=== PATIENT | female | born 1955 | race Caucasian/White ===

== ENCOUNTER 2018-07-19 08:38 | Day surgery (SDC) | payer MEDICAID ==
[2018-07-19] MEDS ORDERED: Lactated Ringers 1,000 ML IV SCH (09:15)
[2018-07-19] MEDS ORDERED: Scopolamine 1.5 MG Transdermal Patch TOP ONE (09:20)
[2018-07-19] MEDS ORDERED: fentaNYL 100 MCG/2 ML SDV ONE (09:26)
[2018-07-19] MEDS ORDERED: Midazolam 1 MG/ML 2 ML SDV ONE (09:26)
[2018-07-19] MEDS ORDERED: Propofol 200 MG/20 ML SDV ONE (09:26)
--- NOTE | 2018-07-20 11:27 | OR ---
DATE OF PROCEDURE: 07/19/2018 PREOPERATIVE DIAGNOSIS: Colon cancer screening. POSTOPERATIVE DIAGNOSIS: Diverticulosis. PROCEDURE: Colonoscopy to the cecum. SURGEON: Tanmay Trinidad MD ANESTHESIA: IV anesthesia with monitored anesthesia care. INDICATION: This 63-year-old white female is referred for a colonoscopy for colon cancer screening. She says her last colonoscopic exam was done 11 years ago. I counseled her for the procedure, including risks and alternatives, and she gave her informed consent to proceed. DESCRIPTION OF PROCEDURE: The patient was placed in the left lateral decubitus position. IV anesthesia was administered by the Anesthesia Service. Time-out was held. A rectal exam was performed, which was unremarkable. The flexible video Olympus colonoscope was introduced through her anus, up her rectum and out her colon all the way to the cecum. To reach the cecum, we did have to apply some abdominal compression. Once the cecum was reached, the scope was slowly withdrawn, examining the mucosa throughout. We did encounter a few scattered left-sided diverticula. There was no bleeding or inflammation associated with them. There were no neoplastic lesions seen. The scope was retroflexed in the rectum with the distal rectum appearing unremarkable. The scope was straightened and removed. She tolerated the procedure well. Tanmay Trinidad MD /[id number] MTDD
== END 2018-07-19 12:22 | disposition home or self-care (01) ==
LOC: JP.SDS 08:38
PROVIDERS: ATTEND Surgery
DX: Z12.11 Encounter for screening for malignant neoplasm of colon (principal); K57.30 Diverticulosis of large intestine without perforation or abscess without bleeding; E66.01 Morbid (severe) obesity due to excess calories; Z68.29 Body mass index [BMI] 29.0-29.9, adult
CPT/HCPCS: 45378; A9270; J2250; J2704; J3010; J7120